=== PATIENT | female | born 1940 | race Caucasian/White ===

== ENCOUNTER → 2016-06-29 | Outpatient (CLI) | payer MEDICARE, OTHER ==
[~2016-06-29] MED LIST: ACTOS15 MG PO; ASPIR 8181 MG PO; ASPIRIN81 MG PO; ISONIAZID TAB300 MG PO; ISONIAZID300 MG PO; ISOSORBIDE DINI30 MG PO; LOPRESSOR 50 MG50 MG PO; LOSARTAN POTASS50 MG PO; METFORMIN HCL1000 MG PO; METOPROLOL TART25 MG PO; MOBIC15 MG PO; NORCO 7.5-3251 EACH PO; NORVASC 5 MG TAB5 MG PO; RANITIDINE HCL300 MG PO; SIMVASTATIN20 MG PO; VIT B6 PO; VITAMIN B-650 MG PO; XARELTO10 MG PO
== END ==
LOC: KOH-I 12:27
DX: M25.511 Pain in right shoulder (principal); M25.561 Pain in right knee; M25.562 Pain in left knee
CPT/HCPCS: 73030; 73564

== ENCOUNTER 2016-07-13 17:27 | Emergency (ER) | payer MEDICARE, OTHER ==
[2016-07-13 21:52] LABS: BUN/CREATININE RATIO 18 (0-10)
[2016-07-13 22:31] LABS: HEMOGLOBIN 11.2 gm/dl (12.3-15.3); RED BLOOD COUNT 4.01 M/UL (4.00-5.10); WHITE BLOOD COUNT 8.9 K/UL (4.5-11.0)
[2016-07-14 00:42] LABS: GLUCOSE,CSF 56 mg/dL (50-80); TOTAL PROTEIN,CSF 44 mg/dL (20-45)
== END 2016-07-14 01:40 | disposition home or self-care (01) ==
LOC: ER1 17:27
PROVIDERS: Emergency Medicine
DX: M25.511 Pain in right shoulder (principal); R51 Headache; R50.9 Fever, unspecified; I11.9 Hypertensive heart disease without heart failure; E11.9 Type 2 diabetes mellitus without complications; Z79.84 Long term (current) use of oral hypoglycemic drugs; Z79.82 Long term (current) use of aspirin; Z79.899 Other long term (current) drug therapy
CPT/HCPCS: 36415; 62270; 70450; 71020; 73030; 80053; 81001; 82945; 83605; 83690; 84157; 84484; 85025; 85610; 85730; 87040; 87070; 87086; 87205; 89051; 93005; 99284; J7030